=== PATIENT | male | born 1970 | race Two or more races ===

== ENCOUNTER 2019-09-29 12:00 | Day surgery (SDC) | payer OTHER ==
[2019-09-29] VITALS (9 sets, daily range): BP systolic 86–137; BP diastolic 45–92
[~2019-09-29] VITALS: Ht 180.3 cm; Wt 108.9 kg
[~2019-09-29 12:00] MED LIST: Ketorolac 30mg Inj ONE; Lidocaine 1% MPF 10mg/ml 5ml ONE; Midazolam 2mg/2ml Inj ONE; Propofol 200mg/20ml IV ONE; ceFAZolin 1gm IVPB IVPB ONE; celeBREX 200mg Cap **SURGERY PATIENTS ONLY ORAL ONE; fentaNYL 100 mcg/2 mL IV ONE; oxyCONTIN 20mg tab ORAL ONE
--- NOTE | 2019-09-29 12:31 | Anethesia Preoperative Eval ---
Anesthesia Pre-op PMH/ROS General Date of Evaluation: Sep 29, 2019 Anesthesiologist: Sree ASA Score: ASA 3 Mallampati Score Class I : Soft palate, uvula, fauces, pillars visible Class II: Soft palate, uvula, fauces visible Class III: Soft palate, base of uvula visible Class IV: Only hard plate visible Mallampati Classification: Class III Surgeon: Rigoberto Diagnosis: Left knee internal derangement Surgical Procedure: Left knee arthroscopy Anesthesia History: none Family History: no anesthesia problems Allergies: Coded Allergies: No Known Allergies (Unverified , 09/28/19) Medications: see eMAR Patient NPO?: Yes NPO Date: Sep 29, 2019 NPO Time: 00:00 Past Medical History Cardiovascular: Denies: HTN, CAD, [place], valve dz, arrhythmia, other Pulmonary: Denies: asthma, COPD, SHANA, other Gastrointestinal/Genitourinary: Reports: GERD, other - h/o colon cancer s/p resection; Denies: CRI, ESRD Neurologic/Psychiatric: Denies: dementia, CVA, depression/anxiety, TIA, other Endocrine: Denies: DM, hypothyroidism, steroids, other HEENT: Denies: cataract (L), cataract (R), glaucoma, [place] (L), [place] (R), other Hematology/Immune: Denies: anemia, DVT, bleeding disorder, other Musculoskeletal/Integumentary: Reports: OA; Denies: RA, DJD, DDD, edema, other Other: obesity PSxH Narrative: hemicolectomy Anesthesia Pre-op Phys. Exam Physician Exam see chart Constitutional: NAD Cardiovascular: RRR Respiratory: CTA Airway Exam Mallampati Score: Class II MO: full ROM: full Teeth: intact, broken, other - multiple cracked Anesthesia Pre-op A/P Labs see chart Studies Pre-op Studies: EKG - sr Risk Assessment & Plan Assessment: ASA III Plan: GA Status Change Before Surgery: No Pre-Antibiotics Drug: Ancef 2g Given Within 1 Hr of Incision: Yes Nidia Chavez MD Sep 29, 2019 12:31
[2019-09-29] MEDS ORDERED: LR 1000ml 1,000 ML IVLG SCH (12:32)
[2019-09-29] MEDS ORDERED: oxyCONTIN 20mg tab ORAL ONE (12:35)
[2019-09-29] MEDS ORDERED: celeBREX 200mg Cap **SURGERY PATIENTS ONLY ORAL ONE (12:35)
[2019-09-29] MEDS ORDERED: EPINEPHrine 1mg/1ml Amp ONE (12:39)
[2019-09-29] MEDS ORDERED: Ketorolac 30mg Inj ONE ×2 (12:39→13:20)
[2019-09-29] MEDS ORDERED: Kenalog-40 1ml Vial ONE (12:39)
[2019-09-29] MEDS ORDERED: Duramorph PF 5mg/10ml amp ONE (12:40)
[2019-09-29] MEDS ORDERED: Bupivacaine 0.25% Inj 30ml INJ ONE (12:40)
[2019-09-29] MEDS ORDERED: Lidocaine 1% 10mg/ml/Epi 0.005mg/ml 30ml vial INJ ONE (12:40)
[2019-09-29] MEDS ORDERED: Midazolam 2mg/2ml Inj IVP PRN (12:45)
[2019-09-29] MEDS ORDERED: fentaNYL 100 mcg/2 mL IV PRN (12:45)
[2019-09-29] MEDS ORDERED: Ketorolac 30mg Inj IV PRN (12:45)
[2019-09-29] MEDS ORDERED: Metoclopramide 10mg/2ml Inj IVP PRN (12:45)
[2019-09-29] MEDS ORDERED: LORazepam Inj 2mg/ml 1ml IV PRN (12:45)
[2019-09-29] MEDS ORDERED: DiphenhydrAMINE 50mg/ml Inj IVP PRN (12:45)
[2019-09-29] MEDS ORDERED: Hydromorphone 0.5mg/0.5ml inj IVP PRN (12:45)
[2019-09-29] MEDS ORDERED: Lidocaine 1% MPF 10mg/ml 5ml ONE (12:49)
[2019-09-29] MEDS ORDERED: Midazolam 2mg/2ml Inj ONE (12:49)
[2019-09-29] MEDS ORDERED: Propofol 200mg/20ml IV ONE ×2 (12:49→13:01)
[2019-09-29] MEDS ORDERED: fentaNYL 100 mcg/2 mL IV ONE (12:49)
[2019-09-29] MEDS ORDERED: NS Irrig 1000ml ONE (13:00)
[2019-09-29] MEDS ORDERED: LR 1000ml ONE (13:00)
--- NOTE | 2019-09-29 13:10 | Pre-Procedure Note/Attestation ---
Pre-Procedure Note/Attestation Complete Prior to Procedure Planned Procedure: left Procedure Narrative: knee diagnostic arthroscopy, possible chondroplasty, menisectomy, synovectomy Indications for Procedure Pre-Operative Diagnosis: left knee internal derangement Attestation I attest that I discussed the nature of the procedure; its benefits; risks and complications; and alternatives (and the risks and benefits of such alternatives ), prior to the procedure, with the patient (or the patient's legal real estate representative). I attest that, if there was a reasonable possibility of needing a blood transfusion, the patient (or the patient's legal real estate representative) was given the [facility] standardized written summary, pursuant to the [place] Blood Safety Act ([place] Health and Safety Code # 1645, as amended). I attest that I re-evaluated the patient just prior to the surgery and that there has been no change in the patient's H&P, except as documented below: Adal Franklin MD Sep 29, 2019 13:10
--- NOTE | 2019-09-29 13:11 | Operative Note - PDOC ---
Operative Note Operative Note Pre-op Diagnosis: left knee internal derangement Procedure: see op report Post-op Diagnosis: same as pre-op plus Operative Findings: consistent w/pre-op dx studies Anesthesia: MAC Specimen: none Complications: none Condition: stable Estimated Blood Loss: none Implant(s) used?: No Adal Franklin MD Sep 29, 2019 13:11
[2019-09-29] MEDS ORDERED: HYDROcodone/Acetamin 5/325 tab ORAL PRN (13:15)
[2019-09-29] MEDS ORDERED: HYDROmorphone 1mg/ml Carpuject SUBQ PRN (13:15)
[2019-09-29] MEDS ORDERED: Tylenol #3 tab (300mg/30mg) ORAL PRN (13:15)
--- NOTE | 2019-09-29 13:45 | Immediate Post-Op Evaluation ---
Immediate Post-Op Evalulation Immediate Post-Op Evalulation Procedure: Left shoulder arthroscopy Date of Evaluation: Sep 29, 2019 Time of Evaluation: 13:46 IV Fluids: 600 Blood Products: 0 Estimated Blood Loss: min Urinary Output: 0 Blood Pressure Systolic: 86 Blood Pressure Diastolic: 45 Pulse Rate: 80 Respiratory Rate: 17 O2 Sat by Pulse Oximetry: 100 Temperature (Fahrenheit): 97.1 Pain Score (1-10): 0 Nausea: No Vomiting: No Complications 0 Patient Status: awake, patent, none Hydration Status: adequate Drug: Ancef 2g Given Within 1 Hr of Incision: Yes Nidia Chavez MD Sep 29, 2019 13:45
--- NOTE | 2019-09-29 13:45 | 48 Hour Post Anesthesia Eval ---
Post Anesthesia Evaluation Procedure: Left knee arthroscopy Date of Evaluation: Sep 29, 2019 Airway: patent Nausea: No Vomiting: No Pain Intensity: 0 Hydration Status: adequate Cardiopulmonary Status: at baseline Mental Status/LOC: patient returned to baseline Post-Anesthesia Complications: 0 Follow-up care needed: ready to discharge Nidia Chavez MD Sep 29, 2019 13:45
[2019-09-29] MEDS ORDERED: D5 1/2NS 1,000 ML IV SCH (14:32)
--- NOTE | 2019-09-29 18:15 | Operative Note - Dictated ---
DATE OF OPERATION: 09/29/2019 PREOPERATIVE DIAGNOSES: 1. Left knee ACL tear. 2. Left knee lateral meniscus tear. 3. Left knee osteoarthritis. POSTOPERATIVE DIAGNOSES: 1. Left knee partial ACL tear. 2. Left knee lateral meniscus tear. 3. Left knee lateral compartment chondral damage. PROCEDURE: 1. Left knee diagnostic arthroscopy and partial lateral meniscectomy. 2. Chondroplasty lateral femoral condyle. 3. Synovectomy medial and lateral patellofemoral compartment. SURGEON: Adal Franklin M.D. ANESTHESIA: General. INDICATION FOR PROCEDURE: The patient is a pleasant gentleman who has had progressive left knee pain. He continued to have symptoms despite conservative treatment and elected to undergo left knee arthroscopic meniscectomy, synovectomy, and chondroplasty. The patient understands that he does have some chondral damage and that he may still have some residual issues as it relates to the fact that he does have chondral damage. Ultimately, though given his age, it was felt that this was appropriate option to try to alleviate symptomatology improving his function. Additional risks were all discussed with the patient. DESCRIPTION OF PROCEDURE: After informed consent was obtained, the patient was brought to the operating room. The patient was placed under general anesthesia. Left knee was prepped and draped in a sterile manner. Ancef was administered. Time-out was performed. Inferolateral stab incision was then made. Trocar was introduced into the knee joint. Systematic tour of the knee was performed. There was significant hypertrophic fat pad and synovial tissue making visualization difficult. Therefore, the patellofemoral compartment was identified. Working portal was established. Shaver was then placed in the patellofemoral compartment and synovectomy of the patellofemoral compartment was performed. Gentle chondroplasty of the femoral condyle was also performed where there was some chondral damage. Once the synovectomy was carried in the anterior and medial compartment, this was extended to the intercondylar notch and the lateral compartment. Medial compartment was entered. The medial compartment was free of any meniscal or chondral damage. The ACL had a tear at the anterior portion along the insertion the tibial spine. This was debrided down to stable rim of tissue. The ACL was again probed and the majority of the ACL was still in continuity. At this point, the camera was placed in the lateral compartment. There was significant tear in the lateral meniscus. Partial and lateral meniscectomy with the stable rim of tissue was performed. There were also some chondral flaps in the distal femoral condyle. Gentle chondroplasty was performed. The camera was repositioned in the patellofemoral compartment. Synovectomy was completed. Once that was done, the instruments were removed. Portal sites were closed with 3-0 Monocryl sutures. Steri-Strips and a sterile dressing were applied. ESTIMATED BLOOD LOSS: None. COMPLICATIONS: None. SPECIMENS: None. IMPLANTS: None. Adal Franklin M.D. DR: PIOTR JOB#: [id number] CC:
== END 2019-09-29 15:45 | disposition home or self-care (01) ==
LOC: SUR 12:00
DX: S83.512A Sprain of anterior cruciate ligament of left knee, initial encounter (principal); S83.282A Other tear of lateral meniscus, current injury, left knee, initial encounter; K21.9 Gastro-esophageal reflux disease without esophagitis; Z85.038 Personal history of other malignant neoplasm of large intestine; M19.90 Unspecified osteoarthritis, unspecified site; E66.9 Obesity, unspecified; Z68.33 Body mass index [BMI] 33.0-33.9, adult; X58.XXXA Exposure to other specified factors, initial encounter; Y92.9 Unspecified place or not applicable
CPT/HCPCS: 29876; 29881; J0171; J0690; J1885; J2250; J2704; J3010; J3301; J3490; J7120; 94003; 94150